=== PATIENT | male | born 1990 | race Caucasian/White ===

== ENCOUNTER 2017-07-16 17:17 | Emergency (ER) | payer SELFPAY ==
[~2017-07-16] VITALS: Ht 180.3 cm; Wt 73.0 kg
[2017-07-16] MEDS ORDERED: KETOROLAC 30MG/ML VIAL IM ONE (18:45)
[2017-07-16 20:10] VITALS: BP 122/82
== END 2017-07-16 20:20 | disposition home or self-care (01) ==
LOC: ER 17:23
DX: R07.9 Chest pain, unspecified (principal); J45.909 Unspecified asthma, uncomplicated; F12.90 Cannabis use, unspecified, uncomplicated
CPT/HCPCS: 71010; 93005; 96372; 99284; J1885; Z7610